=== PATIENT | female | born 1930 | race Caucasian/White ===

== ENCOUNTER 2018-10-19 03:00 | Observation (INO) | payer MEDICARE ==
[2018-10-19] MEDS ORDERED: Aspirin Chewable 81 MG TAB ONE ×2 (03:58→04:27)
[2018-10-19] MEDS ORDERED: Acetaminophen 650 MG Suppository PR PRN (10:29)
[2018-10-19] MEDS ORDERED: Bisacodyl 5 MG TAB PO PRN (10:29)
[2018-10-19] MEDS ORDERED: Acetaminophen 325 MG TAB PO PRN (10:29)
[2018-10-19] MEDS ORDERED: [UNRECOGNIZED DRUG - REMARK] NS PRN (10:31)
[2018-10-19] MEDS ORDERED: cefTRIAXone\\ROCEPHIN 1 GM in Sodium Chloride 0.9% 100 ML IVPB SCH (11:00)
[2018-10-19] MEDS ORDERED: Fluticasone Propionate Nasal Spray 16 gm Bottle NASAL SCH (11:15)
[2018-10-19] MEDS: cloNIDine 0.1 MG TAB PO PRN ×2 (11:33→15:48)
[2018-10-19] MEDS: hydrALAZINE 25 MG TAB PO SCH ×2 (14:50→22:20)
[2018-10-19] MEDS ORDERED: HYDRALAZINE HCL 75 MG PO SCH (15:00)
[2018-10-19] MEDS ORDERED: Sodium Chloride 0.9% 1,000 ML IV SCH (18:00)
--- NOTE | 2018-10-19 18:37 | HP ---
PRIMARY CARE PROVIDER: Dr. Rj Stephens. CHIEF COMPLAINT: Altered mental status. HISTORY OF PRESENT ILLNESS: Ms. Damon is a pleasant 87-year-old lady, who was seen at [facility] on October 19, 2018. She was transferred from [facility]. She reports that yesterday morning she had an episode of confusion. She did not eat her breakfast. She was seen by her primary care provider yesterday afternoon. It does not appear that she had any neurologic symptoms at that time. Around 9:00 p.m. yesterday, she was sitting in a recliner. She reports feeling weird. She states that she had a "funny feeling in her head." She went to sleep. The patient presented to the emergency room at [place] last night. She reported generalized weakness. She was then transferred to the emergency room here. The patient reportedly had shakiness in her arms when her family saw her last night. She does report leg swelling. She denies any dysuria, but reports increased frequency of urination. She reports feeling better today. She is currently alert and oriented x3. REVIEW OF SYSTEMS: All systems were reviewed and found to be negative except for the pertinent positives mentioned above. PAST MEDICAL HISTORY: Gastroesophageal reflux disease, dyslipidemia, hypertension, and osteoarthritis. PAST SURGICAL HISTORY: Appendectomy, hysterectomy, and bilateral knee surgery. SOCIAL HISTORY: The patient denies tobacco use, alcohol use, or recreational drug use. FAMILY HISTORY: Probable stroke in her father, heart attack in her mother at age 86. CODE STATUS: I discussed her code status. She is DNAR. ALLERGIES: AMLODIPINE AND HYDROCODONE. HOME MEDICATIONS: 1. Tylenol 650 mg three times a day as needed. 2. Aspirin 81 mg daily. 3. Cetirizine 10 mg daily. 4. Clonidine 0.2 mg at bedtime and in the morning. 5. Fluticasone nasal spray as needed. 6. Hydralazine 75 mg three times a day. 7. Losartan/hydrochlorothiazide 100/25 mg daily. 8. Metoprolol tartrate 200 mg two times a day. 9. Centrum Silver 1 tablet daily. 10. Omeprazole 20 mg daily. 11. Zocor 40 mg at bedtime. PHYSICAL EXAMINATION: GENERAL: On examination, Ms. Damon is awake and alert, not in acute distress. VITAL SIGNS: Blood pressure is 181/70, pulse is 60, respiratory rate 16, and oxygen saturation 97% on room air. She is afebrile. Earlier, she had a blood pressure of 206/73. EYES: No scleral icterus. No conjunctival pallor. ENT: Moist mucosal membranes. No oropharyngeal erythema or exudates. NECK: Supple and nontender. Trachea is midline. RESPIRATORY: Accessory muscles of breathing are not active. CHEST: Chest wall movements are symmetric bilaterally. LUNGS: Clear to auscultation without wheeze, rhonchi, or crepitations. CARDIOVASCULAR: S1 and S2 are heard, regular. Peripheral pulses palpable. No carotid bruit. No pericardial rub. ABDOMEN: Soft and nontender. Bowel sounds heard. No hepatomegaly. No splenomegaly. NEUROLOGIC: Cranial nerves 2 through 12 are intact. Power is 5/5 in all 4 extremities. No focal motor or sensory deficits. Deep tendon reflexes 2+, plantars downgoing bilaterally. SKIN: No rashes or subcutaneous nodules. LYMPHATIC: No cervical lymphadenopathy. PSYCHIATRIC: Normal mood. Normal affect. The patient is oriented to person, place, and time. LABORATORY DATA: Ms. Damon's labs and investigations were reviewed. I reviewed her electrocardiogram, which shows sinus bradycardia, no ST changes to suggest an acute coronary syndrome. I also reviewed her chest x-ray, which does not show any pulmonary infiltrates. She has elevation of the right hemidiaphragm, also seen on prior chest x-rays. Noncontrast CT scan of the brain did not show any acute intracranial abnormality. She had a stable intracranial meningioma. She has normal white count, normocytic anemia with hemoglobin 10.7, normal platelet count, normal electrolytes, elevated blood urea nitrogen of 25, elevated creatinine of 1.35, last known creatinine 1.09 on October 15, 2018. However, it was 1.17 on September 10, 2018 and 1.51 on August 27, 2018. Calcium level is normal. LFTs are unremarkable. Urinalysis is positive for large amount of leukocyte esterase. She also has 1+ bacteria. ASSESSMENT AND PLAN: Ms. Damon is a pleasant 87-year-old lady, who was seen at [facility] on October 19, 2018. Her problem list includes: 1. Urinary tract infection: Ms. Damon has evidence of urinary tract infection. She will be treated with ceftriaxone. We will follow urine cultures. Urine cultures have not been sent yet from [facility]. We will request urine cultures be submitted here today. 2. 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 3. Acute metabolic encephalopathy: Resolving, most likely secondary to urinary tract infection. 4. Hypertensive urgency: We will resume home medications, monitor vital signs and titrate antihypertensives as needed. 5. Dyslipidemia: Continue Zocor. Many thanks for allowing me to participate in your patient's care. Please feel free to contact me with any questions or concerns. LEVEL OF RISK: High. LEVEL OF COMPLEXITY: High. Job ID: [id number]
[2018-10-19] MEDS: hydrALAZINE 20 MG/ML VIAL SLOW IVP SCH ×2 (19:19→19:37)
[2018-10-19] MEDS: Metoprolol Tartrate 100 MG TAB PO SCH ×2 (20:41→20:44)
[2018-10-19] MEDS: cloNIDine 0.2 MG TAB PO SCH ×2 (20:43→20:45)
[2018-10-19] MEDS ORDERED: cloNIDine 0.2 MG TAB PO SCH (21:00)
[2018-10-19] MEDS ORDERED: Simvastatin 40 MG TAB PO SCH (21:00)
[2018-10-19] MEDS ORDERED: Atorvastatin Calcium 20 MG TAB PO SCH (21:00)
[2018-10-20] MEDS ORDERED: cefTRIAXone\\ROCEPHIN 1 GM in Sodium Chloride 0.9% 100 ML IVPB SCH (01:00)
[2018-10-20] MEDS: cloNIDine 0.2 MG TAB PO SCH (03:09)
[2018-10-20 04:20] LABS: #Eosinphils 0.2 thou/uL (0.0-0.7); #Lymphocytes 2.1 thou/uL (1.20-3.40); #Monocytes 0.7 thou/uL (0.11-0.59); #Neutrophils 3.2 thou/uL (1.40-6.50); %Basophils 0.6 % (0.0-1.0); %Eosinophils 3.2 % (0.0-10.0); %Lymphocytes 34.3 % (21.0-51.0); %Monocytes 10.8 % (0.0-10.0); %Neutrophils 51.2 % (42.0-75.0); Hemoglobin 10.6 g/dL (12.0-16.0); Mean Corpuscular HGB CONC 34.2 g/dL (32.0-36.0); Mean Corpuscular Hemoglobin 32.8 pg (27.0-31.0); Mean Corpuscular Volume 95.8 fL (78.0-98.0); Mean Platelet Volume 6.6 fL (7.4-10.4); Platelet Count 172 thou/uL (130-400); RBC Distribution Width 13.1 % (11.5-14.5); Red Blood Cell (RBC) Count 3.23 mill/uL (4.20-5.40); White Blood Cell (WBC) Count 6.2 thou/uL (4.8-10.8)
[2018-10-20 04:22] LABS: Anion Gap 13 mmol/L (10-20); BUN (Urea Nitrogen) 19 mg/dL (9.8-20.1); Calc. Creatinine Clearance 45 mL/min (70-130); Calcium 9.4 mg/dL (7.8-10.44); Carbon Dioxide 25 mmol/L (23-31); Chloride 104 mmol/L (98-107); Estimated GFR-MDRD 55; Glucose 135 mg/dL (83-110); Potassium 3.6 mmol/L (3.5-5.1); Sodium 138 mmol/L (136-145)
[2018-10-20] MEDS ORDERED: Losartan/Hydrochlorothiazide 100 mg/25 mg Tablet PO SCH (09:00)
[2018-10-20] MEDS ORDERED: Loratadine 10 MG TAB PO SCH (09:00)
[2018-10-20] MEDS ORDERED: Enoxaparin Sodium 40 MG/0.4 ML SYRINGE SC SCH (09:00)
[2018-10-20] MEDS ORDERED: Non-Formulary Item 1 EACH (Multivit-Min/Fa/Lycopen/Lutein [Centrum Silver Tablet] 1 EACH) PO SCH (09:00)
[2018-10-20] MEDS ORDERED: Cetirizine HCl 10 MG TAB PO SCH (09:00)
[2018-10-20] MEDS ORDERED: Multivitamin W/ Minerals 1 TAB PO SCH (09:00)
[2018-10-20] MEDS ORDERED: Non-Formulary Item 1 EACH (Omeprazole [Omeprazole] 20 MG) PO SCH (09:00)
[2018-10-20] MEDS ORDERED: Aspirin 81 mg Enteric Coated Tablet PO SCH (09:00)
[2018-10-20 09:33] VITALS: BP 176/66; TEMP 98
[2018-10-20] MEDS: hydrALAZINE 25 MG TAB PO SCH (09:36)
[2018-10-20] MEDS: Metoprolol Tartrate 100 MG TAB PO SCH (09:38)
--- NOTE | 2018-10-20 17:16 | DIS ---
DATE OF ADMISSION: 10/19/2018 DATE OF DISCHARGE: 10/20/2018 DISCHARGE DISPOSITION: Home. PRIMARY DISCHARGE DIAGNOSES: Acute metabolic encephalopathy, resolved; urinary tract infection, resolving. SECONDARY DISCHARGE DIAGNOSES: Hypertension, dyslipidemia, osteoarthritis. PROCEDURES DONE DURING HOSPITALIZATION: Urine culture, there was no growth. Hemoglobin and hematocrit 10 and 31, platelet count 172. White count of 6. Initial BUN and creatinine of 25 and 1.3, discharge BUN and creatinine of 19 and 0.9. UA showed large leukocyte esterase, 21 to 50 wbc's, and 1+ bacteria. DISCHARGE MEDICATIONS: 1. Aspirin 81 mg p.o. daily. 2. Clonidine 0.2 mg p.o. at 3:00 and 0.2 mg p.o. at bedtime. 3. Hydralazine 75 mg p.o. three times daily. 4. Losartan with hydrochlorothiazide 100/25 mg 1 tablet daily. 5. Metoprolol 200 mg p.o. twice daily. 6. Multivitamin one tablet once daily. 7. Omeprazole 20 mg daily. 8. Simvastatin 40 mg p.o. at bedtime. 9. Ciprofloxacin 500 mg p.o. twice daily for 5 more days. ALLERGIES: TO AMLODIPINE AND HYDROCODONE. DISCHARGE PLAN: The patient to follow up with Dr. Stephens tomorrow. BRIEF COURSE DURING HOSPITALIZATION: The patient initially was brought to emergency room with complaints of confusion. She was found to have had urinary tract infection. She was also mildly dehydrated. The patient has had urine cultures drawn and was placed on IV fluids for gentle hydration. She had mild NADER, which resolved. The patient was on ceftriaxone and has been switched over to ciprofloxacin. She has remained hemodynamically stable. This morning, the patient is fully oriented, and this was confirmed with her daughter who is at bedside. They have a followup appointment to see Dr. Stephens, tomorrow. Please note, I have seen and examined the patient on the day of discharge. Job ID: [id number] [facility]
--- NOTE | 2018-10-23 14:42 | EKG ---
Test Reason : Blood Pressure : / mmHG Vent. Rate : 051 BPM Atrial Rate : 051 BPM P-R Int : 170 ms QRS Dur : 084 ms QT Int : 488 ms P-R-T Axes : 073 023 059 degrees QTc Int : 449 ms Sinus bradycardia Otherwise normal ECG Confirmed by KEREN Murray, ADIEL ([id number]), pictures editor CYNTHIA COLEMAN ([id number]) on 10/23/2018 2:41:54 PM Referred By: Confirmed By:ADIEL VELIZ M.D.
== END 2018-10-20 11:45 | disposition home or self-care (01) ==
LOC: ERS 03:00 → 2SE 03:40
PROVIDERS: ADMIT Hospitalist; ATTEND Hospitalist
DX: N39.0 Urinary tract infection, site not specified (principal); G93.41 Metabolic encephalopathy; E86.0 Dehydration; I16.0 Hypertensive urgency; I12.9 Hypertensive chronic kidney disease with stage 1 through stage 4 chronic kidney disease, or unspecified chronic kidney disease; N18.2 Chronic kidney disease, stage 2 (mild); N17.9 Acute kidney failure, unspecified; E78.5 Hyperlipidemia, unspecified; M19.90 Unspecified osteoarthritis, unspecified site; K21.9 Gastro-esophageal reflux disease without esophagitis; Z88.5 Allergy status to narcotic agent; Z88.8 Allergy status to other drugs, medicaments and biological substances; Z66 Do not resuscitate; Z79.82 Long term (current) use of aspirin; Z79.899 Other long term (current) drug therapy
CPT/HCPCS: 80048; 85025; 87086; 93005; 96361; 96374; 97139; 99285; G0378 ×3; 36415; 96360; 96372; J0360; J0696; J1650; J3490

== ENCOUNTER 2020-02-22 10:56 | Inpatient (IN) | payer MEDICARE ==
[2020-02-22] MEDS ORDERED: Acetaminophen 500 MG TAB ONE (11:19)
[2020-02-22] MEDS ORDERED: Ondansetron PF 4 MG/2 ML Vial ONE (11:19)
[2020-02-22] MEDS ORDERED: Cefepime 2 GM VIAL ONE (11:26)
[2020-02-22] MEDS ORDERED: Vancomycin 1.5 GRAM/300 ML BAG 1.5 GM in Premix Bag 1 BAG IVPB SCH (11:45)
[2020-02-22 11:46] LABS: Hemoglobin 10.7 g/dL (12.0-16.0); Mean Corpuscular HGB CONC 33.5 g/dL (32.0-36.0); Mean Corpuscular Hemoglobin 32.6 pg (27.0-31.0); Mean Corpuscular Volume 97.3 fL (78.0-98.0); Mean Platelet Volume 7.1 fL (7.4-10.4); Platelet Count 140 thou/uL (130-400); RBC Distribution Width 12.2 % (11.5-14.5); Red Blood Cell (RBC) Count 3.28 mill/uL (4.20-5.40); White Blood Cell (WBC) Count 11.9 thou/uL (4.8-10.8)
--- NOTE | 2020-02-22 11:52 | RAD ---
EXAM: XR Chest 1 View Portable PROVIDED CLINICAL HISTORY: Cough COMPARISON: 10/19/2018 FINDINGS: The cardiac and mediastinal silhouette is unchanged in appearance. Atherosclerotic vascular calcifica tion is again seen involving the aortic arch. The lungs are hypoinflated, limiting evaluation. Persistent elevation of the right hemidiaphragm. No focal consolidation, pleural fluid or pneumothora x apparent. IMPRESSION: No evidence for an acute cardiopulmonary process.
[2020-02-22 12:06] LABS: ALT (SGPT) 11 U/L (8-55); AST (SGOT) 15 U/L (5-34); Albumin 3.7 g/dL (3.4-4.8); Alkaline Phosphatase 44 U/L (40-110); Anion Gap 15 mmol/L (10-20); BUN (Urea Nitrogen) 27 mg/dL (9.8-20.1); Bilirubin, Total 0.5 mg/dL (0.2-1.2); Calc. Creatinine Clearance 0 mL/min (70-130); Calcium 9.6 mg/dL (7.8-10.44); Carbon Dioxide 27 mmol/L (23-31); Chloride 98 mmol/L (98-107); Globulin 2.8 g/dL (2.4-3.5); Glucose 174 mg/dL (83-110); Potassium 3.2 mmol/L (3.5-5.1); Protein, Total 6.5 g/dL (6.0-8.3); Sodium 137 mmol/L (136-145)
[2020-02-22 12:08] LABS: Band 24 % (5-11); Lymphocytes 11 % (21-51); MDiff Complete? YES; Monocytes 3 % (0-10); Neutrophil 62 % (42-75); Platelet Morphology Comment Appears Adequate; Polychromasia SLIGHT = 2-3 cells (100X) (0-2/hpf)
--- NOTE | 2020-02-22 13:04 | PDOC.HHP ---
Hospitalist HPI - History of Present Illness Fever/cellulitis History of Present Illness: Patient with past medical history of hypertension, dyslipidemia, CKD presents to emergency department for evaluation of 1 to 2-day progression of generalized malaise, subjective fever, chills. Tells me the symptoms probably started yesterday evening but it was not this morning that she could not control her shakes. Tells me that 1-2 days ago she might have gotten a small scratch by her cat on her right lower extremity. Yesterday and today the extremity appears more swollen and painful. Today the legs has erythematous rash suggestive of cellulitis. She denies any other symptoms such as cough, shortness of breath, changes in smell or taste, vomiting or diarrhea. Please do not that patient appeared to have a for slightly different history to ED provider at which point apparently she did admit to ongoing nonproductive cough as well as nausea but no vomiting. Initial ED evaluation reveals elderly female appearing acutely ill. Upon arrival she is noted to be febrile with temperature of 101.2. She is slightly hypoxic with O2 sats initially of 88. During my assessment she is satting 97% on room air. Chest x-ray is negative for any acute pathology. COVID-19 and influenza testing are pending. CBC shows mild leukocytosis of 11.9. Chemistry shows stable renal dysfunction with BUN of 27, creatinine 1.34. Lactic acid and troponins are negative. Urinalysis is negative for UTI. On exam she does have erythematous rash to right lower extremity and a couple of small scratches both suggestive of cellulitis. Hospitalist ROS - Review of Systems Constitutional: reports: fever, chills, weakness, malaise Respiratory: denies: cough (Please note that patient did refer some cough to ED provider), dry, shortness of breath, hemoptysis, SOB with excertion, pleuritic pain, sputum, wheezing, other Gastrointestinal: denies: nausea (Please note the patient did prefer some nausea to ED provider), vomiting, abdominal pain, diarrhea, constipation, melena, hematochezia, other Genitourinary: denies: dysuria, frequency, incontinence, hematuria, retention, other Neurological: reports: weakness Hospitalist History - Past Medical History Cardiac: reports: HTN, Hyperlipidemia Renal/: reports: Chronic renal insuff - Exam General Appearance: NAD, awake alert, ill appearing Eye: PERRL (History of bilateral eye surgery; asymmetrical left iris chronic), anicteric sclera Neck: supple, symmetric, no JVD, no thyromegaly, no lymphadenopathy, no carotid bruit Heart: RRR (Borderline tachycardia during my exam), no murmur, no gallops, no rubs, normal peripheral pulses Respiratory: CTAB, no wheezes, no rales, no ronchi, normal chest expansion, no tachypnea, normal percussion Gastrointestinal: soft, non-tender, non-distended, normal bowel sounds, no palpable masses, no hepatomegaly, no splenomegaly, no bruit Extremities: no cyanosis, no clubbing, no edema, 1+ LE edema (Right lower extremity with +1 edema and erythematous rash) Skin - other findings: Erythematous rash to right lower extremity, small scratch the area Psychiatric: normal affect, normal behavior, A&O x 3 Hospitalist Results - Labs Result Diagrams: 02/22/20 11:30 02/22/20 11:30 Lab results: WBC 11.9 thou/uL (4.8-10.8) H 02/22/20 11:30 Hgb 10.7 g/dL (12.0-16.0) L 02/22/20 11:30 Hct 31.9 % (36.0-47.0) L 02/22/20 11:30 MCV 97.3 fL (78.0-98.0) 02/22/20 11:30 Plt Count 140 thou/uL (130-400) 02/22/20 11:30 Band Neuts % (Manual) 24 % (5-11) H 02/22/20 11:30 Sodium 137 mmol/L (136-145) 02/22/20 11:30 Potassium 3.2 mmol/L (3.5-5.1) L 02/22/20 11:30 Chloride 98 mmol/L (98-107) 02/22/20 11:30 Carbon Dioxide 27 mmol/L (23-31) 02/22/20 11:30 BUN 27 mg/dL (9.8-20.1) H 02/22/20 11:30 Creatinine 1.34 mg/dL (0.6-1.1) H 02/22/20 11:30 Glucose 174 mg/dL (83-110) H 02/22/20 11:30 Lactic Acid 1.8 mmol/L (0.5-2.2) 02/22/20 11:30 Calcium 9.6 mg/dL (7.8-10.44) 02/22/20 11:30 Total Bilirubin 0.5 mg/dL (0.2-1.2) 02/22/20 11:30 AST 15 U/L (5-34) 02/22/20 11:30 ALT 11 U/L (8-55) 02/22/20 11:30 Alkaline Phosphatase 44 U/L (40-110) 02/22/20 11:30 Troponin I 0.020 ng/mL (< 0.028) 02/22/20 11:30 Serum Total Protein 6.5 g/dL (6.0-8.3) 02/22/20 11:30 Albumin 3.7 g/dL (3.4-4.8) 02/22/20 11:30 - Radiology Interpretation Chest x-ray Status: report reviewed by me (Chest x-ray negative for acute pathology.) Hospitalist H&P A/P - Plan Plan: A/P: Presents with 2 days progression of subjective fever, chills, malaise, generalized weakness. Per patient she had a small scratched by her cat several days ago to right lower extremity. Yesterday started noticing more tenderness and swelling to the area. Apparently this morning symptoms exacerbated abruptly. During my assessment she denies any upper respiratory symptoms however she provided a slightly different history to ED provider. On exam she has right lower extremity cellulitic rash. Does have some leukocytosis and initial fever of 101.2. Cellulitis: Patient to be admitted for inpatient management. Continue with broad-spectrum antibiotics including vancomycin and cefepime. Communication order entered for pharmacy to dose vancomycin. We will start the patient on gentle IV fluid hydration. Tylenol as needed for fever and pain. Blood cultures have been sent which will be followed. Sepsis: Meets sepsis criteria upon arrival. Received a fluid resuscitation. Vi rogelio signs are currently stable without any hypotension. Lactic acid is normal. In setting of cellulitis. Other work-up including COVID-19 and influenza testing are pending. Hypoxia: Hypoxia on arrival appeared to be transient. Chest x-ray is clear for any obvious acute pathology. On exam she has clear lung sounds. During my assessment she is satting well on room air. Awaiting COVID-19 and influenza testing. CKD: Appears around baseline. Continue with IV fluid hydration. Hold diuretics and other nephrotoxic's. Hypertension: We will initially hold blood pressure medications due to risk of sepsis/septic shock. If she remains hemodynamically stable will restart medications. Per patient she is on diuretics for history of lower extremity edema. Echocardiogram on file show EF 55-60%. Hyperlipidemia: Continue with statin. DISPOSITION: Pending clinical progression. Patient lives alone but her son lives next door and sleeps over frequently. May require rehab at time of discharge.
[2020-02-22 13:26] LABS: Bilirubin Negative (Negative); Blood, Urine Negative (Negative); Clarity Clear (Clear); Glucose, Urine (Dipstick) Normal (Negative); Ketone, Urine Negative (Negative); Leukocyte Negative Leu/uL (Negative); Nitrite Negative (Negative); Protein, Urine (Dipstick) 20 mg/dL (Neg-Trace); Urobilinogen Normal mg/dL (Less than 2); pH, Urine 6.5 (5.0-9.0)
[2020-02-22] MEDS ORDERED: Ondansetron PF 4 MG/2 ML Vial IVP PRN (13:33)
[2020-02-22] MEDS ORDERED: Communication Order-Pharmacy FS ONE (13:33)
[2020-02-22] MEDS ORDERED: Senokot S 8.6-50 MG TAB PO PRN (13:33)
[2020-02-22] MEDS ORDERED: Acetaminophen 325 MG TAB PO PRN (13:33)
[2020-02-22 13:40] LABS: SARS-CoV-2 NAA Rapid Test Not Detected (NotDetected)
[2020-02-22] MEDS ORDERED: Fluticasone Propionate Nasal Spray 16 gm Bottle NASAL PRN (16:22)
[2020-02-22] MEDS ORDERED: Potassium Chloride 20 MEQ TAB PO SCH (16:30)
[2020-02-22 16:57] VITALS: BMI 29.0
[2020-02-22] MEDS: Sodium Chloride 0.9% 1,000 ML IV SCH (17:26)
[2020-02-22] MEDS ORDERED: Atorvastatin Calcium 20 MG TAB PO SCH (21:00)
[2020-02-23] MEDS: Sodium Chloride 0.9% 1,000 ML IV SCH ×2 (03:31→17:39)
[2020-02-23 07:12] LABS: ALT (SGPT) 11 U/L (8-55); AST (SGOT) 15 U/L (5-34); Albumin 3.1 g/dL (3.4-4.8); Alkaline Phosphatase 40 U/L (40-110); BUN (Urea Nitrogen) 21 mg/dL (9.8-20.1); Bilirubin, Total 0.4 mg/dL (0.2-1.2); Calc. Creatinine Clearance 39 mL/min (70-130); Calcium 8.5 mg/dL (7.8-10.44); Chloride 104 mmol/L (98-107); Globulin 2.5 g/dL (2.4-3.5); Glucose 117 mg/dL (83-110); Magnesium 1.3 mg/dL (1.6-2.6); Potassium 3.7 mmol/L (3.5-5.1); Protein, Total 5.6 g/dL (6.0-8.3); Sodium 138 mmol/L (136-145)
[2020-02-23 07:19] LABS: Carbon Dioxide 21 mmol/L (23-31)
[2020-02-23 07:38] LABS: White Blood Cell (WBC) Count 13.1 thou/uL (4.8-10.8)
[2020-02-23] MEDS: Enoxaparin Sodium 30 MG/0.3 ML SYRINGE SC SCH (07:59)
[2020-02-23 08:10] LABS: Anion Gap 17 mmol/L (10-20)
[2020-02-23 08:40] LABS: Band 19 % (5-11); Eosinophils 1 % (0-10); Hemoglobin 9.9 g/dL (12.0-16.0); Lymphocytes 13 % (21-51); MDiff Complete? YES; Mean Corpuscular HGB CONC 32.7 g/dL (32.0-36.0); Mean Corpuscular Hemoglobin 32.3 pg (27.0-31.0); Mean Corpuscular Volume 98.8 fL (78.0-98.0); Mean Platelet Volume 7.3 fL (7.4-10.4); Monocytes 7 % (0-10); Neutrophil 54 % (42-75); Platelet Count 136 thou/uL (130-400); RBC Distribution Width 12.5 % (11.5-14.5); Reactive Lymphocytes 6 % (0-10); Red Blood Cell (RBC) Count 3.08 mill/uL (4.20-5.40)
[2020-02-23] MEDS ORDERED: Aspirin 81 mg Enteric Coated Tablet PO SCH (09:00)
[2020-02-23] MEDS: Cefepime 1 GM in Sodium Chloride 0.9% 100 ML IVPB SCH (11:34)
[2020-02-23] MEDS ORDERED: Magnesium Sulfate 4 GM in Sodium Chloride 0.9% 250 ML 250 ML IVPB SCH (11:45)
[2020-02-23] MEDS ORDERED: Vancomycin 1 GM in Premix Bag 1 BAG IVPB SCH (13:00)
[2020-02-23] MEDS ORDERED: cloNIDine 0.1 MG TAB PO PRN (13:26)
[2020-02-23] MEDS ORDERED: Vancomycin HCl 750 MG in Sodium Chloride 0.9% 250 ML 250 ML IVPB SCH (13:30)
[2020-02-23] MEDS ORDERED: Acetaminophen 325 MG TAB PO PRN (13:32)
[2020-02-23] MEDS ORDERED: Loratadine 10 MG TAB PO PRN (13:32)
[2020-02-23] MEDS ORDERED: Metoprolol Tartrate 25 MG TAB PO SCH (13:45)
[2020-02-23] MEDS: cloNIDine 0.1 MG TAB PO SCH ×2 (14:38→19:32)
[2020-02-23] MEDS: Atorvastatin Calcium 20 MG TAB PO SCH (19:32)
[2020-02-23] MEDS: Multivitamin W/ Minerals 1 TAB PO SCH (19:33)
[2020-02-23] MEDS: Metoprolol Tartrate 50 MG TAB PO SCH (19:33)
--- NOTE | 2020-02-23 21:39 | PDOC.HOSPP ---
- Subjective Encounter Date: 02/23/20 Encounter Time: 16:00 Subjective: Patient seen and examined for right lower extremity cellulitis. Erythema and swelling slowly improving. Patient is feeling generally weak and fatigue. Denies any nausea or vomiting. - Objective Vital Signs & Weight: Vital Signs (12 hours) Temp Pulse Pulse Resp BP BP BP 02/23/20 20:34 02/23/20 20:00 98.6 F 93 18 02/23/20 19:32 174/75 H 02/23/20 18:16 98.5 F 103 H 20 02/23/20 14:38 179/73 H 02/23/20 14:03 74 165/76 H 189/71 H 02/23/20 12:04 97.9 F 60 18 BP Pulse Ox 02/23/20 20:34 99 02/23/20 20:00 174/75 H 99 02/23/20 19:32 02/23/20 18:16 178/76 H 93 L 02/23/20 14:38 02/23/20 14:03 02/23/20 12:04 154/69 H 95 Weight Weight 153 lb 8 oz I&O: 02/22/20 02/23/20 02/24/20 06:59 06:59 06:59 Intake Total 1390 Balance 1390 Result Diagrams: 02/23/20 06:06 02/23/20 06:06 Additional Labs: Abnormal Lab Results - Last 48 hrs 02/22/20 11:30: WBC 11.9 H, RBC 3.28 L, Hgb 10.7 L, Hct 31.9 L, MCH 32.6 H, MPV 7.1 L, Band Neuts % (Manual) 24 H, Lymphocytes % (Manual) 11 L 02/22/20 11:30: Potassium 3.2 L, BUN 27 H, Creatinine 1.34 H 02/23/20 06:06: Carbon Dioxide 21 L, BUN 21 H, Magnesium 1.3 L, Serum Total Protein 5.6 L, Albumin 3.1 L 02/23/20 06:06: WBC 13.1 H, RBC 3.08 L, Hgb 9.9 L, Hct 30.4 L, MCV 98.8 H, MCH 32.3 H, MPV 7.3 L, Band Neuts % (Manual) 19 H, Lymphocytes % (Manual) 13 L Microbiology - Entire Visit 02/22/20 11:40 Venous blood - Right Arm Blood Culture - Preliminary Specimen has been received and culture in progress. No Growth to date. 02/22/20 11:31 Venous blood - Right Arm Blood Culture - Preliminary Gram Negative Wilner 02/22/20 13:00 Urine Straight Catheter Urine Culture - Preliminary NO GROWTH AT 24 HOURS Radiology Reviewed by me: Yes (Chest x-ray negative for infiltrate) Hospitalist ROS - Review of Systems Cardiovascular: denies: chest pain, palpitations, orthopnea, paroxysmal noc. dyspnea, edema, light headedness, other Gastrointestinal: denies: nausea, vomiting, abdominal pain, diarrhea, constip ation, melena, hematochezia, other - Medication Medications: Active Medications Generic Name Dose Route Start Last Admin Trade Name Freq PRN Reason Stop Dose Admin Atorvastatin Calcium 20 mg 02/23/20 21:00 02/23/20 19:32 Atorvastatin Calcium 20 Mg Tab PO 20 mg HS RICK Administration Clonidine 0.1 mg 02/23/20 15:00 02/23/20 19:32 Clonidine 0.1 Mg Tab PO 0.1 mg TID RICK Administration Enoxaparin Sodium 30 mg 02/23/20 09:00 02/23/20 07:59 Enoxaparin Sodium 30 Mg/0.3 Ml Syringe SC 30 mg 0900 RICK Administration Cefepime HCl 1 gm/ Sodium 100 mls @ 200 mls/hr 02/23/20 12:00 02/23/20 11:34 Chloride IVPB 100 mls 1200 RICK Administration Iron/Minerals/Multivitamins 1 tab 02/23/20 21:00 02/23/20 19:33 Multivitamin W/ Minerals 1 Tab PO 1 tab HS RICK Administration Metoprolol Tartrate 50 mg 02/23/20 21:00 02/23/20 19:33 Metoprolol Tartrate 50 Mg Tab PO 50 mg BID RICK Administration - Exam General Appearance: NAD Neck: supple, no JVD Heart: RRR, no gallops Respiratory: no wheezes, no ronchi Gastrointestinal: non-tender, normal bowel sounds Extremities: no cyanosis, 2+ LE edema (Right lower extremity with erythema/tenderness/warmth) Hosp A/P - Plan DVT proph w/SCDs Sepsis secondary to right lower extremity cellulitisPOA Chronic anemia suspected due to nutritional deficiency Hypokalemia Hypomagnesemia NADER on CKD stage IIIPOA Moderate protein calorie malnutrition Gram-negative wilner bacteremiasensitivities pending Hypertension Dyslipidemia GERD Degenerative joint disease Plan: Continue vancomycin with cefepime. Monitor vancomycin level. Replace magnesium. Recheck labs in a.m. Lower extremity elevation. Await culture sensitivity. Add probiotics. Discontinue IV fluid. Resume antihypertensives. Restart hydralazine. Continue other medications as above
[2020-02-23] MEDS ORDERED: Sod Chloride/Lan/MO/Peet,Wh (Lubriderm) Lotion 180 ml Bottle TOP PRN (21:42)
[2020-02-24] MEDS: Aspirin 81 mg Enteric Coated Tablet PO SCH (08:06)
[2020-02-24] MEDS: cloNIDine 0.1 MG TAB PO SCH ×3 (08:06→20:15)
[2020-02-24] MEDS: Saccharomyces boulardii 250 MG CAP PO SCH (08:08)
[2020-02-24] MEDS: Multivit, Therapeutic 1 TAB PO SCH (08:08)
[2020-02-24] MEDS: Metoprolol Tartrate 50 MG TAB PO SCH (08:08)
[2020-02-24] MEDS ORDERED: hydrALAZINE 25 MG TAB PO SCH ×2 (09:00→10:15)
[2020-02-24] MEDS ORDERED: Metoprolol Tartrate 50 MG TAB PO SCH ×2 (10:00→12:45)
[2020-02-24] MEDS ORDERED: Losartan 25 MG TAB PO SCH ×2 (10:00→12:45)
[2020-02-24] MEDS ORDERED: cloNIDine 0.1 MG TAB PO PRN (10:15)
[2020-02-24] MEDS: Enoxaparin Sodium 30 MG/0.3 ML SYRINGE SC SCH (10:47)
[2020-02-24] MEDS: Cefepime 1 GM in Sodium Chloride 0.9% 100 ML IVPB SCH (13:09)
[2020-02-24] MEDS: hydrALAZINE 25 MG TAB PO SCH ×2 (16:01→20:16)
--- NOTE | 2020-02-24 19:28 | PDOC.HOSPP ---
- Subjective Encounter Date: 02/24/20 Encounter Time: 14:00 Subjective: Patient seen and examined for cellulitis. Lower extremity swelling and redness improving. Denies any fever or chills. - Objective Vital Signs & Weight: Vital Signs (12 hours) Temp Pulse Resp BP BP BP Pulse Ox 02/24/20 18:12 192/76 H 02/24/20 16:04 198/74 H 02/24/20 16:01 65 198/74 H 02/24/20 12:40 190/73 H 02/24/20 11:56 98.2 F 65 20 167/74 H 95 02/24/20 08:27 97.8 F 02/24/20 08:24 75 18 200/79 H 93 L 02/24/20 08:07 63 200/80 H 02/24/20 08:06 200/80 H 02/24/20 08:00 97.8 F 75 18 200/79 H 96 Weight Weight 153 lb 8 oz I&O: 02/23/20 02/24/20 02/25/20 06:59 06:59 06:59 Intake Total 1390 450 Balance 1390 450 Result Diagrams: 02/23/20 06:06 02/23/20 06:06 Additional Labs: Abnormal Lab Results - Last 48 hrs 02/23/20 06:06: Carbon Dioxide 21 L, BUN 21 H, Magnesium 1.3 L, Serum Total Protein 5.6 L, Albumin 3.1 L 02/23/20 06:06: WBC 13.1 H, RBC 3.08 L, Hgb 9.9 L, Hct 30.4 L, MCV 98.8 H, MCH 32.3 H, MPV 7.3 L, Band Neuts % (Manual) 19 H, Lymphocytes % (Manual) 13 L Microbiology - Entire Visit 02/22/20 11:31 Venous blood - Right Arm Blood Culture - Preliminary Pasteurella multocida 02/22/20 11:40 Venous blood - Right Arm Blood Culture - Preliminary NO GROWTH AT 48 HOURS 02/22/20 13:00 Urine Straight Catheter Urine Culture - Final NO GROWTH AT 48 HOURS Hospitalist ROS - Review of Systems Respiratory: denies: cough, dry, shortness of breath, hemoptysis, SOB with excertion, pleuritic pain, sputum, wheezing, other Cardiovascular: denies: chest pain, palpitations, orthopnea, paroxysmal noc. dyspnea, edema, light headedness, other - Medication Medications: Active Medications Generic Name Dose Route Start Last Admin Trade Name Laura PRN Reason Stop Dose Admin Aspirin 81 mg 02/24/20 09:00 02/24/20 08:06 Aspirin 81 Mg Enteric Coated Tablet PO 81 mg DAILY RICK Administration Atorvastatin Calcium 20 mg 02/23/20 21:00 02/23/20 19:32 Atorvastatin Calcium 20 Mg Tab PO 20 mg HS RICK Administration Clonidine 0.1 mg 02/23/20 15:00 02/24/20 16:04 Clonidine 0.1 Mg Tab PO 0.1 mg TID RICK Administration Enoxaparin Sodium 30 mg 02/23/20 09:00 02/24/20 10:47 Enoxaparin Sodium 30 Mg/0.3 Ml Syringe SC Not Given 0900 RICK Hydralazine HCl 75 mg 02/24/20 15:00 02/24/20 16:01 Hydralazine 25 Mg Tab PO 75 mg TID RICK Administration Cefepime HCl 1 gm/ Sodium 100 mls @ 200 mls/hr 02/23/20 12:00 02/24/20 13:09 Chloride IVPB 100 mls 1200 RICK Administration Iron/Minerals/Multivitamins 1 tab 02/23/20 21:00 02/23/20 19:33 Multivitamin W/ Minerals 1 Tab PO 1 tab HS RICK Administration Multivitamins 1 tab 02/24/20 09:00 02/24/20 08:08 Multivit, Therapeutic 1 Tab PO 1 tab DAILY RICK Administration Saccharomyces Boulardii 250 mg 02/24/20 09:00 02/24/20 08:08 Saccharomyces Boulardii 250 Mg Cap PO 250 mg DAILY RICK Administration - Exam General Appearance: NAD Neck: supple, no JVD Heart: RRR, no gallops Respiratory: no wheezes, no ronchi Gastrointestinal: soft, non-tender, normal bowel sounds Extremities: 1+ LE edema Extremities - other findings: Improving right lower extremity erythema and tenderness Hosp A/P - Plan DVT proph w/SCDs Sepsis secondary to right lower 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 Continues cefepime. Blood pressure uncontrolled. I verified all the home medications including metoprolol 200 mg twice daily with the family. Change metoprolol to 200 mg twice daily. Continue hydralazine 75 mg 3 times daily. Continue clonidine 0.1 mg 3 times a day. Since renal function is improved will restart losartan and hydrochlorothiazide. A.m. labs. Continue other medications as above. We will also DC Lovenox due to significant bruising at the injection site.
[2020-02-24] MEDS: Atorvastatin Calcium 20 MG TAB PO SCH (20:15)
[2020-02-24] MEDS: Metoprolol Tartrate 100 MG TAB PO SCH (20:17)
[2020-02-24] MEDS: Multivitamin W/ Minerals 1 TAB PO SCH (20:17)
[2020-02-24] MEDS: Losartan 25 MG TAB PO SCH (20:17)
[2020-02-24] MEDS ORDERED: Metoprolol Tartrate 100 MG TAB PO SCH ×2 (21:00)
[2020-02-25 01:05] LABS: #Eosinphils 0.1 thou/uL (0.0-0.7); #Lymphocytes 1.2 thou/uL (1.20-3.40); #Monocytes 0.7 thou/uL (0.11-0.59); #Neutrophils 9.7 thou/uL (1.40-6.50); %Basophils 0.3 % (0.0-1.0); %Eosinophils 0.6 % (0.0-10.0); %Lymphocytes 10.2 % (21.0-51.0); %Neutrophils 82.9 % (42.0-75.0); Hemoglobin 10.7 g/dL (12.0-16.0); Mean Corpuscular HGB CONC 33.3 g/dL (32.0-36.0); Mean Corpuscular Hemoglobin 32.2 pg (27.0-31.0); Mean Corpuscular Volume 96.8 fL (78.0-98.0); Platelet Count 177 thou/uL (130-400); RBC Distribution Width 12.3 % (11.5-14.5); Red Blood Cell (RBC) Count 3.31 mill/uL (4.20-5.40); White Blood Cell (WBC) Count 11.7 thou/uL (4.8-10.8)
[2020-02-25 01:23] LABS: Lactic Acid 1.1 mmol/L (0.5-2.2)
[2020-02-25 01:26] LABS: ALT (SGPT) 22 U/L (8-55); AST (SGOT) 24 U/L (5-34); Albumin 3.4 g/dL (3.4-4.8); Alkaline Phosphatase 70 U/L (40-110); Anion Gap 14 mmol/L (10-20); BUN (Urea Nitrogen) 14 mg/dL (9.8-20.1); Bilirubin, Total 0.5 mg/dL (0.2-1.2); Calc. Creatinine Clearance 49 mL/min (70-130); Calcium 9.1 mg/dL (7.8-10.44); Carbon Dioxide 26 mmol/L (23-31); Chloride 102 mmol/L (98-107); Globulin 3.2 g/dL (2.4-3.5); Glucose 158 mg/dL (83-110); Magnesium 1.9 mg/dL (1.6-2.6); Potassium 3.9 mmol/L (3.5-5.1); Protein, Total 6.6 g/dL (6.0-8.3); Sodium 138 mmol/L (136-145)
[2020-02-25] MEDS ORDERED: Furosemide 20 MG/2 ML VIAL SLOW IVP SCH (01:45)
[2020-02-25 06:33] LABS: #Eosinphils 0.1 thou/uL (0.0-0.7); #Lymphocytes 1.4 thou/uL (1.20-3.40); #Monocytes 0.9 thou/uL (0.11-0.59); #Neutrophils 8.6 thou/uL (1.40-6.50); %Basophils 0.3 % (0.0-1.0); %Eosinophils 0.7 % (0.0-10.0); Hemoglobin 10.5 g/dL (12.0-16.0); Mean Corpuscular HGB CONC 32.9 g/dL (32.0-36.0); Mean Corpuscular Volume 97.4 fL (78.0-98.0); Mean Platelet Volume 7.2 fL (7.4-10.4); Platelet Count 177 thou/uL (130-400); RBC Distribution Width 12.2 % (11.5-14.5); Red Blood Cell (RBC) Count 3.28 mill/uL (4.20-5.40)
[2020-02-25 06:57] LABS: ALT (SGPT) 19 U/L (8-55); AST (SGOT) 23 U/L (5-34); Albumin 3.4 g/dL (3.4-4.8); Alkaline Phosphatase 72 U/L (40-110); Anion Gap 12 mmol/L (10-20); BUN (Urea Nitrogen) 13 mg/dL (9.8-20.1); Bilirubin, Total 0.4 mg/dL (0.2-1.2); Calc. Creatinine Clearance 47 mL/min (70-130); Calcium 9.2 mg/dL (7.8-10.44); Carbon Dioxide 31 mmol/L (23-31); Chloride 99 mmol/L (98-107); Globulin 3.2 g/dL (2.4-3.5); Glucose 142 mg/dL (83-110); Magnesium 1.7 mg/dL (1.6-2.6); Potassium 3.5 mmol/L (3.5-5.1); Protein, Total 6.6 g/dL (6.0-8.3); Sodium 138 mmol/L (136-145)
[2020-02-25] MEDS: Saccharomyces boulardii 250 MG CAP PO SCH (08:39)
[2020-02-25] MEDS: cloNIDine 0.1 MG TAB PO SCH ×3 (08:40→20:16)
[2020-02-25] MEDS: Hydrochlorothiazide 25 MG TAB PO SCH (08:40)
[2020-02-25] MEDS: Aspirin 81 mg Enteric Coated Tablet PO SCH (08:41)
[2020-02-25] MEDS: hydrALAZINE 25 MG TAB PO SCH ×3 (08:41→20:17)
[2020-02-25] MEDS: Enoxaparin Sodium 30 MG/0.3 ML SYRINGE SC SCH (08:44)
[2020-02-25] MEDS: Multivit, Therapeutic 1 TAB PO SCH (08:44)
--- NOTE | 2020-02-25 08:57 | RAD ---
Chest AP view INDICATION: Tachypnea with CHF COMPARISON: February 22, 2020 FINDINGS: Lungs: There is worsening interstitial and airspace disease of the right upper lobe and left perihil ar region. Cardiac silhouette: There is persistent moderate cardiomegaly Pulmonary vasculature: There is mild pulmonary vascular congestion Pleural spaces: There are small bilateral pleural effusions, left greater than right Upper abdomen: There is stable elevation the right hemidiaphragm Osseous structures: No acute osseous abnormality. Additional findings: None. IMPRESSION: 1. Findings suspicious for component of mild CHF. 2. Worsening interstitial and airspace opacities within both lungs may reflect edema; however, an aty pical pneumonia could also have this appearance. Continued follow-up is recommended.
[2020-02-25] MEDS ORDERED: Losartan 25 MG TAB PO SCH (09:00)
[2020-02-25] MEDS: Metoprolol Tartrate 100 MG TAB PO SCH ×2 (10:53→20:24)
[2020-02-25] MEDS: Losartan 25 MG TAB PO SCH ×2 (10:54→20:17)
[2020-02-25] MEDS: Amoxicillin/Potassium Clav 875 MG TAB PO SCH ×2 (10:54→10:57)
[2020-02-25] MEDS ORDERED: Iopamidol-370 76% 500 ML 1 ML ONE (13:47)
[2020-02-25 15:12] LABS: Troponin I 0.085 ng/mL (< 0.028)
--- NOTE | 2020-02-25 17:44 | CT ---
CT ANGIOGRAM THORAX WITH CONTRAST: (CTA pulmonary angiogram) DATE: 02/25/2020 HISTORY: 89-year-old female with dyspnea and cough At 5:41 PM 02/25/[address] Dr. V[address]as notified Dr. Jeffrey Roa of the mild left-sided PE by [place] [facility] tel ephone call. TECHNIQUE: IV injection of iodinated contrast. Scan acquisition timing attempted to coincide with iodinated contrast bolus reaching maximal density in pulmonary arteries. 3-D MIP reconstructions. FINDINGS: There is thrombus in a second order branch of the left lower lobe pulmonary artery (third order branc h of the left main pulmonary artery, lateral basilar segmental branch). No thrombus identified elsewhere in pulmonary artery branches. No thoracic aortic aneurysm or dissection. Atherosclerosis of thoracic aorta. Tiny left pleural effusion and adjacent minimal left posterior basilar subsegmental atelectasis. Small focal 1.5 cm stellate nodular density at apical segment of right upper lobe. Scattered, more faint, minimal scattered and confluent interstitial changes elsewhere, especially kyle ateral lower lobes. No large consolidation. Elevated right hemidiaphragm. IMPRESSION: mild left-sided pulmonary thromboembolism.
--- NOTE | 2020-02-25 17:50 | PDOC.HOSPP ---
- Subjective Encounter Date: 02/25/20 Encounter Time: 17:48 Subjective: Patient seen for follow-up regarding pulmonary embolism. Denies chest pain or shortness of breath. - Objective Vital Signs & Weight: Vital Signs (12 hours) Temp Pulse Resp BP BP BP Pulse Ox 02/25/20 16:51 127 H 148/89 H 02/25/20 16:50 148/89 H 02/25/20 15:38 97.9 F 106 H 18 179/95 H 94 L 02/25/20 10:56 98.5 F 85 20 162/67 H 96 02/25/20 08:41 68 211/80 H 02/25/20 08:40 211/80 H 02/25/20 08:00 98.2 F 70 16 149/69 H 98 Weight Weight 153 lb 8 oz I&O: 02/24/20 02/25/20 02/26/20 06:59 06:59 06:59 Intake Total 450 350 Output Total 1400 Balance 450 -1050 Result Diagrams: 02/25/20 05:53 02/25/20 05:53 Additional Labs: Labs and MAR reviewed by [place] Hospitalist ROS - Review of Systems Cardiovascular: denies: chest pain, palpitations, orthopnea, paroxysmal noc. dyspnea, edema, light headedness Gastrointestinal: denies: nausea, vomiting, abdominal pain, diarrhea, constipation, melena, hematochezia - Medication Medications: Active Medications Generic Name Dose Route Start Last Admin Trade Name Freq PRN Reason Stop Dose Admin Amoxicillin/Clavulanate Potassium 875 mg 02/25/20 09:00 02/25/20 10:57 Amoxicillin/Potassium Clav 875 Mg Tab PO 875 mg Q12HR RICK Administration Aspirin 81 mg 02/24/20 09:00 02/25/20 08:41 Aspirin 81 Mg Enteric Coated Tablet PO 81 mg DAILY RICK Administration Atorvastatin Calcium 20 mg 02/23/20 21:00 02/24/20 20:15 Atorvastatin Calcium 20 Mg Tab PO 20 mg HS RICK Administration Clonidine 0.1 mg 02/23/20 15:00 02/25/20 16:50 Clonidine 0.1 Mg Tab PO 0.1 mg TID RICK Administration Hydralazine HCl 75 mg 02/24/20 15:00 02/25/20 16:51 Hydralazine 25 Mg Tab PO 75 mg TID RICK Administration Hydrochlorothiazide 25 mg 02/25/20 09:00 02/25/20 08:40 Hydrochlorothiazide 25 Mg Tab PO 25 mg DAILY RICK Administration Iron/Minerals/Multivitamins 1 tab 02/23/20 21:00 02/24/20 20:17 Multivitamin W/ Minerals 1 Tab PO 1 tab HS RICK Administration Losartan Potassium 50 mg 02/24/20 21:00 02/25/20 10:54 Losartan 25 Mg Tab PO 50 mg BID RICK Administration Metoprolol Tartrate 200 mg 02/24/20 21:00 02/25/20 10:53 Metoprolol Tartrate 100 Mg Tab PO 200 mg BID RICK Administration Multivitamins 1 tab 02/24/20 09:00 02/25/20 08:44 Multivit, Therapeutic 1 Tab PO 1 tab DAILY RICK Administration Ondansetron HCl 4 mg 02/22/20 13:33 02/25/20 02:03 Ondansetron Pf 4 Mg/2 Ml Vial IVP 4 mg Q6H PRN Administration Nausea/Vomiting Saccharomyces Boulardii 250 mg 02/24/20 09:00 02/25/20 08:39 Saccharomyces Boulardii 250 Mg Cap PO 250 mg DAILY RICK Administration - Exam General Appearance: awake alert Eye: anicteric sclera ENT: normocephalic atraumatic Neck: supple Heart - other findings: S1, S2, regular and tachycardic Respiratory: CTAB Gastrointestinal: soft, non-tender Skin - other findings: Right leg cellulitis Psychiatric: normal affect, normal behavior Hosp A/P - Plan -Assessment Pulmonary embolism Sepsis secondary to right lower extremity 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 Discontinue cefepime, start Augmentin. Continue metoprolol to 200 mg twice daily. Continue hydralazine 75 mg 3 times daily. Continue clonidine 0.1 mg 3 times a day. Continue losartan and hydrochlorothiazide.
[2020-02-25] MEDS ORDERED: Sodium Chloride 0.9% 1,000 ML IV SCH (18:00)
[2020-02-25] MEDS ORDERED: ALPRAZolam 0.25 MG TAB PO SCH (18:45)
[2020-02-25] MEDS: Enoxaparin Sodium 80 MG/0.8 ML SYRINGE SC SCH (20:15)
[2020-02-25] MEDS: Atorvastatin Calcium 20 MG TAB PO SCH (20:16)
[2020-02-25] MEDS: Multivitamin W/ Minerals 1 TAB PO SCH (20:18)
[2020-02-26 06:21] LABS: Hemoglobin 10.3 g/dL (12.0-16.0); Platelet Count 197 thou/uL (130-400)
[2020-02-26] MEDS: Amoxicillin/Potassium Clav 875 MG TAB PO SCH ×2 (08:45→20:31)
[2020-02-26] MEDS: Hydrochlorothiazide 25 MG TAB PO SCH (08:46)
[2020-02-26] MEDS: Aspirin 81 mg Enteric Coated Tablet PO SCH (08:46)
[2020-02-26] MEDS: cloNIDine 0.1 MG TAB PO SCH ×3 (08:46→20:34)
[2020-02-26] MEDS: Saccharomyces boulardii 250 MG CAP PO SCH (08:47)
[2020-02-26] MEDS: Multivit, Therapeutic 1 TAB PO SCH (08:47)
[2020-02-26] MEDS: hydrALAZINE 25 MG TAB PO SCH ×3 (08:47→20:33)
[2020-02-26] MEDS: Losartan 25 MG TAB PO SCH ×2 (08:47→20:32)
[2020-02-26] MEDS: Enoxaparin Sodium 80 MG/0.8 ML SYRINGE SC SCH (08:48)
[2020-02-26] MEDS: Metoprolol Tartrate 100 MG TAB PO SCH ×2 (08:48→20:33)
[2020-02-26] MEDS ORDERED: Nystatin 500,000 UNITS/5 ML UDCUP SSW SCH (10:00)
[2020-02-26] MEDS ORDERED: Apixaban 5 MG TAB PO SCH (10:00)
[2020-02-26] MEDS: Nystatin 500,000 UNITS/5 ML UDCUP SSW SCH ×3 (12:16→20:34)
--- NOTE | 2020-02-26 15:40 | PDOC.HOSPP ---
- Subjective Encounter Date: 02/26/20 Encounter Time: 10:50 Subjective: Patient seen for follow-up regarding pulmonary embolism. Reports feeling better. - Objective Vital Signs & Weight: Vital Signs (12 hours) Temp Pulse Resp BP BP Pulse Ox 02/26/20 14:17 80 108/64 02/26/20 12:03 97.3 F L 80 16 92/60 96 02/26/20 08:47 79 02/26/20 08:46 149/72 H 02/26/20 08:05 97.4 F L 79 18 149/72 H 94 L Weight Weight 153 lb 8 oz I&O: 02/25/20 02/26/20 02/27/20 06:59 06:59 06:59 Intake Total 350 Output Total 1400 Balance -1050 Result Diagrams: 02/26/20 05:41 02/25/20 05:53 Additional Labs: I reviewed patient's labs and MAR Hospitalist ROS - Review of Systems Cardiovascular: denies: chest pain, palpitations, orthopnea, paroxysmal noc. dyspnea, edema, light headedness Gastrointestinal: denies: nausea, vomiting, abdominal pain, diarrhea, constipation, melena, hematochezia - Medication Medications: Active Medications Generic Name Dose Route Start Last Admin Trade Name Freq PRN Reason Stop Dose Admin Amoxicillin/Clavulanate Potassium 875 mg 02/25/20 09:00 02/26/20 08:45 Amoxicillin/Potassium Clav 875 Mg Tab PO 875 mg Q12HR RICK Administration Aspirin 81 mg 02/24/20 09:00 02/26/20 08:46 Aspirin 81 Mg Enteric Coated Tablet PO 81 mg DAILY RICK Administration Atorvastatin Calcium 20 mg 02/23/20 21:00 02/25/20 20:16 Atorvastatin Calcium 20 Mg Tab PO 20 mg HS RICK Administration Clonidine 0.1 mg 02/23/20 15:00 02/26/20 14:17 Clonidine 0.1 Mg Tab PO Not Given TID RICK Hydralazine HCl 75 mg 02/24/20 15:00 02/26/20 14:17 Hydralazine 25 Mg Tab PO Not Given TID RICK Hydrochlorothiazide 25 mg 02/25/20 09:00 02/26/20 08:46 Hydrochlorothiazide 25 Mg Tab PO 25 mg DAILY RICK Administration Iron/Minerals/Multivitamins 1 tab 02/23/20 21:00 02/25/20 20:18 Multivitamin W/ Minerals 1 Tab PO 1 tab HS RICK Administration Losartan Potassium 50 mg 02/24/20 21:00 02/26/20 08:47 Losartan 25 Mg Tab PO 50 mg BID RICK Administration Metoprolol Tartrate 200 mg 02/24/20 21:00 02/26/20 08:48 Metoprolol Tartrate 100 Mg Tab PO 200 mg BID RICK Administration Multivitamins 1 tab 02/24/20 09:00 02/26/20 08:47 Multivit, Therapeutic 1 Tab PO 1 tab DAILY RICK Administration Nystatin 500,000 units 02/26/20 13:00 02/26/20 12:16 Nystatin 500,000 Units/5 Ml Udcup SSW 500,000 units QID RICK Administration Ondansetron HCl 4 mg 02/22/20 13:33 02/25/20 02:03 Ondansetron Pf 4 Mg/2 Ml Vial IVP 4 mg Q6H PRN Administration Nausea/Vomiting Saccharomyces Boulardii 250 mg 02/24/20 09:00 02/26/20 08:47 Saccharomyces Boulardii 250 Mg Cap PO 250 mg DAILY RICK Administration - Exam General Appearance: awake alert Eye: anicteric sclera ENT - other findings: Oral thrush Heart: RRR Gastrointestinal: soft, non-tender Skin: no rashes Psychiatric: normal affect, normal behavior Hosp A/P - Plan -Assessment Pulmonary embolism Sepsis secondary to right lower extremity cellulitis due to Pasteurella with bacteremia Chronic anemia suspected due to nutritional deficiency Hypokalemia resolved Hypomagnesemia resolved NADER on CKD stage III resolved Moderate protein calorie malnutrition Hypertension Dyslipidemia GERD Degenerative joint disease - Plan Discussed with patient and daughter in the room as well as with son over the telephone. They would prefer apixaban. Discontinue Lovenox and start apixaban. Continue Augmentin for Pasteurella multocida cellulitis. Start nystatin for oral thrush. Patient is on metoprolol 200 mg twice daily. Sinus tachycardia has resolved. Continue hydralazine 75 mg 3 times daily. Continue clonidine 0.1 mg 3 times a day. Continue losartan and hydrochlorothiazide. Likely home 24 to 48 hours.
[2020-02-26] MEDS ORDERED: ALPRAZolam 0.25 MG TAB PO SCH (16:00)
[2020-02-26] MEDS: Apixaban 5 MG TAB PO SCH (20:32)
[2020-02-26] MEDS: Atorvastatin Calcium 20 MG TAB PO SCH (20:32)
[2020-02-26] MEDS: Multivitamin W/ Minerals 1 TAB PO SCH (20:33)
[2020-02-27] MEDS ORDERED: ALPRAZolam 0.25 MG TAB PO SCH (01:30)
[2020-02-27] MEDS: Metoprolol Tartrate 100 MG TAB PO SCH (08:05)
[2020-02-27] MEDS: Nystatin 500,000 UNITS/5 ML UDCUP SSW SCH ×2 (08:05→12:43)
[2020-02-27] MEDS: Saccharomyces boulardii 250 MG CAP PO SCH (08:06)
[2020-02-27] MEDS: Aspirin 81 mg Enteric Coated Tablet PO SCH (08:06)
[2020-02-27] MEDS: hydrALAZINE 25 MG TAB PO SCH (08:06)
[2020-02-27] MEDS: Hydrochlorothiazide 25 MG TAB PO SCH (08:07)
[2020-02-27] MEDS: cloNIDine 0.1 MG TAB PO SCH (08:07)
[2020-02-27] MEDS: Losartan 25 MG TAB PO SCH (08:07)
[2020-02-27] MEDS: Multivit, Therapeutic 1 TAB PO SCH (08:07)
[2020-02-27] MEDS: Apixaban 5 MG TAB PO SCH (08:07)
[2020-02-27] MEDS: Amoxicillin/Potassium Clav 875 MG TAB PO SCH (08:07)
[2020-02-27] MEDS ORDERED: ALPRAZolam 0.25 MG TAB PO PRN (11:12)
--- NOTE | 2020-02-27 11:48 | PDOC.DS.DS ---
Provider - Provider Date of Admission: 02/22/20 13:22 Date of Discharge: 02/27/20 Admitting Provider: Abdiaziz Rodarte MD Primary Care Physician: Rj Stephens MD Course - Hospital Course Hospital Course: Discharge diagnoses: 1. Bacteremia with Pasteurella multocida 2. Cellulitis 3. Pulmonary embolism 4. Hypertensive urgency 5. Influenza test negative 6. COVID-19 test negative 7. Hypokalemia 8. Acute kidney injury 9. Hypoalbuminemia 10. Sepsis 11. Acute hypoxic respiratory failure Hospital course: Patient is a pleasant 89-year-old lady who was admitted to the hospital on February 22, 2020 for sepsis secondary to cellulitis of the right lower extremity following scratched by her cat. She was treated with broad-spectrum i ntravenous antibiotics. 1 out of 2 blood cultures grew Pasteurella multocida. She was switched to Augmentin. On February 24 she was found to be tachycardic. CT angiogram of the chest showed mild left-sided pulmonary thromboembolism. She has been started on apixaban. She is being discharged home on apixaban, Augmentin, Florastor and as needed Xanax for anxiety. Many thanks for allowing me to participate in your patient's care. Please feel free to contact me with any questions or concerns. Discharge destination: Home Total amount of time spent coordinating this discharge: 33 minutes Resuscitation Status: 02/22/20 13:33 Resuscitation Status Routine Resuscitation Status: DNAR: NO Resuscitation Discussed with: Patient Additional comments: DNI/DNR - Labs Lab Results: 02/26/20 05:41 02/25/20 05:53 Abnormal Lab Results - Last 48 hrs 02/25/20 14:34: Troponin I 0.085 H 02/25/20 14:34: D-Dimer 2.37 H 02/26/20 05:41: Hgb 10.3 L, Hct 31.9 L Microbiology - Entire Visit 02/22/20 11:31 Venous blood - Right Arm Blood Culture - Final Pasteurella multocida 02/22/20 11:40 Venous blood - Right Arm Blood Culture - Preliminary NO GROWTH AT 48 HOURS 02/22/20 13:00 Urine Straight Catheter Urine Culture - Final NO GROWTH AT 48 HOURS - Physical Exam Vitals: Vital Signs (12 hours) Temp Pulse Resp BP BP Pulse Ox Pulse Ox 02/27/20 10:04 97 02/27/20 08:07 121/75 02/27/20 08:06 69 02/27/20 07:37 98.0 F 69 20 123/72 95 02/27/20 05:47 97.6 F 68 18 120/68 94 L Weight Weight 153 lb 8 oz Physical Exam: The patient was seen and examined on the day of discharge. Patient denies chest pain or shortness of breath. Vital signs are stable. S1 and S2 are heard. Lungs are clear to auscultation bilaterally. Plan - Discharge Medications Prescriptions: Amoxicillin/Potassium Clav [Augmentin] 875 mg PO Q12HR #18 tab cloNIDine [Catapres] 0.1 mg PO TID #90 tab Losartan Potassium [Cozaar] 50 mg PO BID #60 tab Saccharomyces boulardii [Florastor] 250 mg PO DAILY #9 cap hydrALAZINE HCl [Hydralazine HCl] 75 mg PO TID #135 tablet Nystatin 500,000 unit SSW QID #140 ml ALPRAZolam [Xanax] 0.25 mg PO BIDPRN PRN #14 tab PRN Reason: Anxiety Home Medications: Medication Instructions Recorded Confirmed Type Acetaminophen [Tylenol] 650 mg PO TID PRN 02/22/20 02/22/20 History Aspirin [Ecotrin Low Strength] 81 mg PO DAILY 02/22/20 02/22/20 History Cetirizine HCl [Zyrtec] 10 mg PO DAILY PRN 02/22/20 02/22/20 History Fluticasone Propionate [Flonase 1 spray EA NARE DAILY PRN 02/22/20 02/22/20 History Nasal Page] Furosemide 20 mg PO ASDIR 02/22/20 02/22/20 History Hydrochlorothiazide 25 mg PO DAILY 02/22/20 02/22/20 History Metoprolol Tartrate 200 mg PO BID 02/22/20 02/22/20 History Multivit-Min/Iron/Folic/Lutein 1 tablet PO HS 02/22/20 02/22/20 History [Centrum Silver Women] Multivit-Min/Iron/Folic/Lutein 1 each PO DAILY 02/22/20 02/22/20 History [Multivitamin Women 50 Plus Tab] Mv-Min/FA/Vit K/Lycop/Lut/Zeax 1 each PO DAILY 02/22/20 02/22/20 History [Ocuvite Eye Plus Multi Tablet] Omeprazole 20 mg PO PRN PRN 02/22/20 02/22/20 History Simvastatin 40 mg PO HS 02/22/20 02/22/20 History ALPRAZolam [Xanax] 0.25 mg PO BIDPRN PRN #14 tab 02/27/20 Rx Amoxicillin/Potassium Clav 875 mg PO Q12HR #18 tab 02/27/20 Rx [Augmentin] Apixaban [Eliquis] 10 mg PO BID tab 02/27/20 Rx Losartan Potassium [Cozaar] 50 mg PO BID #60 tab 02/27/20 Rx Nystatin 500,000 unit SSW QID #140 ml 02/27/20 Rx Saccharomyces boulardii [Florastor] 250 mg PO DAILY #9 cap 02/27/20 Rx cloNIDine [Catapres] 0.1 mg PO TID #90 tab 02/27/20 Rx hydrALAZINE HCl [Hydralazine HCl] 75 mg PO TID #135 tablet 02/27/20 Rx Allergies: amlodipine [From Norvas] Allergy (Verified 02/22/20 16:17) Pt unsure of reaction; Reports allergic hydrocodone Allergy (Verified 02/22/20 16:17) Rash Per pt - Discharge Instructions Discharge Instructions:: Check your blood pressure and heart rate 3 times a day and shows readings to your primary care provider. Activity:: Activity as Tolerated Nourishment:: Heart Healthy Diet - Follow up Plan Referrals: [facility] [Outside] Rj Stephens MD [Primary Care Provider] - 3 Days Disposition: HOME Quality - Care Measures CORE MEASURES:: N/A
[2020-02-27 11:56] VITALS: BP 142/83; TEMP 97.3
--- NOTE | 2020-02-27 15:16 | EKG ---
Test Reason : Blood Pressure : / mmHG Vent. Rate : 123 BPM Atrial Rate : 123 BPM P-R Int : 168 ms QRS Dur : 082 ms QT Int : 322 ms P-R-T Axes : 000 057 260 degrees QTc Int : 460 ms Sinus tachycardia Abnormal ECG When compared with ECG of 22-FEB-2020 11:15, (Unconfirmed) Premature atrial complexes are no longer Present Vent. rate has increased BY 56 BPM T wave inversion more evident in Inferior leads T wave inversion now evident in Anterior leads Confirmed by DR. Kaz SNYDER MD ([id number]) on 02/27/2020 3:16:42 PM Referred By: ANN Confirmed By:DR. Kaz SNYDER MD
[2020-03-04] MEDS ORDERED: Apixaban 5 MG TAB PO SCH (09:00)
== END 2020-02-27 15:09 | disposition home or self-care (01) | DRG 867 ==
LOC: ERS 10:56 → T4-B 13:22
PROVIDERS: ADMIT Internal Medicine; ATTEND Internal Medicine
DX: A28.0 Pasteurellosis (principal); J96.01 Acute respiratory failure with hypoxia; I26.99 Other pulmonary embolism without acute cor pulmonale; L03.115 Cellulitis of right lower limb; N17.9 Acute kidney failure, unspecified; E44.0 Moderate protein-calorie malnutrition; Z20.828 Contact with and (suspected) exposure to other viral communicable diseases; Z66 Do not resuscitate; I16.0 Hypertensive urgency; E87.6 Hypokalemia; E88.09 Other disorders of plasma-protein metabolism, not elsewhere classified; I12.9 Hypertensive chronic kidney disease with stage 1 through stage 4 chronic kidney disease, or unspecified chronic kidney disease; E78.5 Hyperlipidemia, unspecified; M17.0 Bilateral primary osteoarthritis of knee; E78.00 Pure hypercholesterolemia, unspecified; E83.42 Hypomagnesemia; N18.30 Chronic kidney disease, stage 3 unspecified; D53.1 Other megaloblastic anemias, not elsewhere classified; K21.9 Gastro-esophageal reflux disease without esophagitis; Z90.49 Acquired absence of other specified parts of digestive tract; Z88.8 Allergy status to other drugs, medicaments and biological substances; Z79.899 Other long term (current) drug therapy; Z68.29 Body mass index [BMI] 29.0-29.9, adult
CPT/HCPCS: 0240U; 36415; 51701; 71045; 71275; 80053; 80202; 81003; 83605; 83735; 83880; 84145; 84443; 84484; 85007; 85014; 85018; 85025; 85027; 85049; 85379; 87040; 87077; 87086; 87149; 93005; 93010; 96365; 96366; 96367; 96375; J0692; J1650; J1940; J2405; J3370; J3475; J3490; J7050; Q9967